=== PATIENT | male | born 1985 | race African-American/Black ===

== ENCOUNTER 2021-02-25 19:53 | Emergency (ER) | payer OTHER, SELFPAY ==
[2021-02-25] MEDS ORDERED: hydrOXYzine HCL 25 MG TAB ONE (20:32)
--- NOTE | 2021-02-25 20:32 | ER ---
Nurse's Notes [facility] Name: Saul Marin Age: 35 yrs Sex: Male : 1985 Arrival Date: 02/25/2021 Time: 19:59 Bed 19 Private MD: Diagnosis: Pruritus, unspecified Presentation: 02/25 20:14 Chief complaint: Patient states: Itching to lower back, buttocks, and genitals. Denies aj1 rash. Denies drainage, Denies fever. Coronavirus screen: Vaccine status: Patient reports receiving the 2nd dose of the covid vaccine. Ebola Screen: Patient denies travel to an Ebola-affected area in the 21 days before illness onset. Initial Sepsis Screen: Does the patient meet any 2 criteria? No. Patient's initial sepsis screen is negative. Does the patient have a suspected source of infection? No. Patient's initial sepsis screen is negative. Risk Assessment: Do you want to hurt yourself or someone else? Patient reports no desire to harm self or others. Onset of symptoms was February 25, 2021. 20:14 Method Of Arrival: Ambulatory aj 20:14 Acuity: ONESIMO 5 aj1 Triage Assessment: 20:15 General: Appears in no apparent distress. comfortable, Behavior is calm, cooperative, aj1 appropriate for age. Pain: Denies pain. Historical: - Allergies: 20:15 No Known Allergies; aj1 - Home Meds: 20:15 None [Active]; aj1 - PMHx: 20:15 None; aj1 - PSHx: 20:15 None; aj1 - Immunization history:: Flu vaccine is not up to date. - Social history:: Smoking status: Patient reports the use of cigarette tobacco products, smokes one-half pack cigarettes per day. Screenin:25 Abuse screen: Denies threats or abuse. Nutritional screening: No deficits noted. cc4 Tuberculosis screening: No symptoms or risk factors identified. Fall Risk None identified. Assessment: 20:25 Reassessment: Patient appears in no apparent distress at this time. General: Appears in cc4 no apparent distress. Behavior is calm, cooperative. Derm: Skin is intact, slight redness noted of skin right buttock \T\ groin; reports itching x 1 week starting lower back extending to right buttock \T\ groin; no rash noted; Sully Paez NP in to see \T\ accessing. 20:34 Reassessment: Patient appears in no apparent distress at this time. medicated as cc4 ordered. Vital Signs: 20:14 BP 131 / 79; Pulse 78; Resp 18; Temp 97.4; Pulse Ox 99% on R/A; Weight 97.52 kg (R); aj1 Height 5 ft. 8 in. (172.72 cm) (R); Pain 0/10; 20:39 BP 144 / 83; Pulse 79; Resp 18 S; Temp 97.7(O); Pulse Ox 99% on R/A; cc4 20:14 Body Mass Index 32.69 (97.52 kg, 172.72 cm) [facility] ED Course: 19:59 Patient arrived in ED. 20:08 Evangelina Martins F[facility]-C is [facility]. 20:08 Parjmit Franco MD is Attending Physician. kb 20:15 Triage completed. aj1 20:15 Arm band placed on Patient placed in an exam room. aj 20:24 Enedelia Peters, RN is Primary Nurse. cc4 20:25 Patient has correct armband on for positive identification. Bed in low position. Call cc4 light in reach. 20:25 No provider procedures requiring assistance completed. cc4 20:39 Patient did not have IV access during this emergency room visit. cc4 Administered Medications: 20:34 Drug: Atarax (hydrOXYzine) 25 mg Route: PO; cc4 20:39 Follow up: Response: No adverse reaction cc4 Outcome: 20:31 Discharge ordered by . kb 20:39 Discharged to home ambulatory. cc4 20:39 Condition: stable 20:39 Discharge instructions given to patient, Instructed on discharge instructions, follow up and referral plans. medication usage, Demonstrated understanding of instructions, follow-up care, medications. 20:51 Patient left the ED. cc4 Signatures: Evangelina Martins FNP-C FNP-Catarina Reaves RN RN [facility] Laura Shah Enedelia Peters, RN RN cc4
--- NOTE | 2021-02-25 20:32 | EDPHYS ---
Physician Documentation [facility] Name: Saul Marin Age: 35 yrs Sex: Male : 1985 Arrival Date: 02/25/2021 Time: 19:59 Bed 19 Private MD: ED Physician Parmjit Franco HPI: 02/25 20:37 This 35 yrs old Black Male presents to ER via Ambulatory with complaints of Genital kb itching/rash. 20:37 The patient's rash thought to be caused by an unknown cause. The rash is located on the kb buttocks and pelvis. Onset: The symptoms/episode began/occurred 1 week(s) ago. Associated signs and symptoms: Pertinent positives: itching. Severity of symptoms: At their worst the symptoms were moderate in the emergency department the symptoms are unchanged. The patient has not experienced similar symptoms in the past. The patient has not recently seen a physician. Pt reports itching to genital area and buttocks for a week. . Historical: - Allergies: 20:15 No Known Allergies; aj1 - Home Meds: 20:15 None [Active]; aj1 - PMHx: 20:15 None; aj1 - PSHx: 20:15 None; aj1 - Immunization history:: Flu vaccine is not up to date. - Social history:: Smoking status: Patient reports the use of cigarette tobacco products, smokes one-half pack cigarettes per day. ROS: 20:34 Constitutional: Negative for fever, chills, and weight loss. kb 20:34 Skin: Positive for itching. 20:34 All other systems are negative. Exam: 20:36 Constitutional: This is a well developed, well nourished patient who is awake, alert, kb and in no acute distress. Head/Face: Normocephalic, atraumatic. ENT: Moist Mucous membranes Respiratory: Respirations even and unlabored. No increased work of breathing, no retractions or nasal flaring. MS/ Extremity: Pulses equal, no cyanosis. Neurovascular intact. Full, normal range of motion. Neuro: Awake and alert, GCS 15, oriented to person, place, time, and situation. Moves all extremities. Normal gait. Psych: Awake, alert, with orientation to person, place and time. Behavior, mood, and affect are within normal limits. 20:36 Skin: redness from scratching noted to groin and buttocks, no rash noted. Vital Signs: 20:14 BP 131 / 79; Pulse 78; Resp 18; Temp 97.4; Pulse Ox 99% on R/A; Weight 97.52 kg (R); aj1 Height 5 ft. 8 in. (172.72 cm) (R); Pain 0/10; 20:39 BP 144 / 83; Pulse 79; Resp 18 S; Temp 97.7(O); Pulse Ox 99% on R/A; cc4 20:14 Body Mass Index 32.69 (97.52 kg, 172.72 cm) aj1 MDM: 20:18 Patient medically screened. kb 20:28 Data reviewed: vital signs, nurses notes. Data interpreted: Pulse oximetry: on room air kb is 99 %. Interpretation: normal. Counseling: I had a detailed discussion with the patient and/or guardian regarding: the historical points, exam findings, and any diagnostic results supporting the discharge/admit diagnosis, the need for outpatient follow up, a family practitioner, to return to the emergency department if symptoms worsen or persist or if there are any questions or concerns that arise at home. Administered Medications: 20:34 Drug: Atarax (hydrOXYzine) 25 mg Route: PO; cc4 20:39 Follow up: Response: No adverse reaction cc4 Disposition: 02/26 02:23 Co-signature as Attending Physician, Parmjit Franco MD. [facility] Disposition Summary: 02/25/21 20:31 Discharge Ordered Location: Home kb Condition: Stable kb Diagnosis - Pruritus, unspecified kb Followup: kb - With: Emergency Department - When: As needed - Reason: Worsening of condition Followup: kb - With: Private Physician - When: 2 - 3 days - Reason: Recheck today's complaints, Continuance of care, Re-evaluation by your physician Discharge Instructions: - Discharge Summary Sheet kb - Pruritus kb Forms: - Medication Reconciliation Form kb - Thank You Letter kb - Antibiotic Education kb - Prescription Opioid Use kb - Work release form cc4 Prescriptions: - Hydroxyzine HCl 25 mg Oral Tablet - take 1 tablet by ORAL route every 6 hours As needed; 30 tablet; Refills: 0, kb Product Selection Permitted Signatures: Evangelina Martins, KRISTIN-C KRISTIN-Catarina Reaves RN RN 1 Parmjit Franco MD MD [id number] Enedelia Peters, RN RN cc4
[2021-02-25 21:07] VITALS: BP 131/79; TEMP 97.4; O2SAT 99
== END 2021-02-25 20:51 | disposition home or self-care (01) ==
LOC: ER 19:53
DX: L29.9 Pruritus, unspecified (principal); F17.210 Nicotine dependence, cigarettes, uncomplicated
CPT/HCPCS: 99283